=== PATIENT | male | born 1995 | race Caucasian/White ===

== ENCOUNTER 2016-10-29 19:58 | Emergency (ER) | payer MEDICAID ==
--- NOTE | 2016-10-29 20:14 | ED Physician Chart ---
Chief Complaint/HPI - Patient Information Date Seen:: 10/29/16 Time Seen:: 20:00 Chief Complaint:: hand pain History of Present Illness:: 21-year-old male, otherwise healthy, complains of acute, constant, mild to moderate, right hand pain over the dorsum that started 2 hours after his device biter. Has some associated slight swelling of the area. Denies numbness or tingling of distal extremity. Also denies Chest pain, palpitations, abdominal pain, nausea, vomiting, fevers. Allergies:: Allergies Allergy/AdvReac Type Severity Reaction Status Date / Time pcn Allergy Uncoded 12/27/12 11:52 Historian:: Patient Review:: Nurse's Note Reviewed Review of Systems - Review of Systems Other: Complete system review otherwise unremarkable except as noted in history of present illness. Past Medical History - Past Medical History Past Medical History: No significant medical hx Family History: None Social History: Non Smoker, No Alcohol, No Drug Use Surgical History: None Psychiatricy History: None Family Medical History - Family Member Mother History Unknown: Yes Physical Exam - Physical Examination Other:: INITIAL VITAL SIGNS: Reviewed by me GENERAL: Alert and interactive. No acute distress HEAD: Head is normocephalic and atraumatic EYES: EOMI. No scleral icterus. No conjunctival injection ENT: Moist mucous membranes. NECK: Supple. No masses. Full range of motion RESPIRATORY: No tachypnea. Clear breath sounds bilaterally. No wheezing, rales, or rhonchi CV: Regular rate and rhythm. No murmurs, rubs, or gallops ABDOMEN: Soft, non-distended, non-tender. No guarding. No rebound. No masses. EXTREMITIES: Right hand, dorsum there is a small area of edema with slight erythema over the second MCP area. Distal extremity has good neurovascular status. SKIN: Warm and dry. No obvious rashes. NEUROLOGIC: Alert and oriented. Face is symmetric. Speech is normal. Moves all extremities equally. Motor and sensory distally intact. ED Septic Shock - . Is Septic Shock (SBP<90, OR Lactate>4 mmol\L) present?: No Reassessment (Disposition) - Reassessment Reassessment:: Patient has acute right hand pain due to spider bite. At this point since of infection however the bite just happened about 2 hours prior to arrival. There is some moderate reaction to the bite. We gave Benadryl here in the ER. Symptoms improved. Provide a prescription for Keflex and Bactrim as prophylaxis to be started if signs of infection develop. Patient to take over- the-counter ibuprofen for pain control. Follow-up PCP 1 days for wound check. Return to ER precautions given. Patient understands and agrees with plan. Reassessment Condition:: Improved - Diagnosis Diagnosis:: Acute right hand pain due to acute spider bite of the right hand - Aftercare/Follow up Instructions Aftercare/Follow-Up Instructions:: Counseled pt regarding lab results/diagnosis & need follow up, Refer to Discharge Instructions Medication Prescribed:: Keflex Bactrim DS - Patient Disposition Discharge/Transfer:: Home Time:: 20:37 Condition at Disposition:: Improved ED Discharge Plan - Patient Disposition Admit/Discharge/Transfer: PT DISCHARGED HOME Condition at Disposition: Improved Instructions: Spider Bite, [id number]
== END 2016-10-29 20:45 | disposition home or self-care (01) ==
LOC: ER 19:58
DX: T63.301A Toxic effect of unspecified spider venom, accidental (unintentional), initial encounter (principal); Y92.89 Other specified places as the place of occurrence of the external cause; W57.XXXA Bitten or stung by nonvenomous insect and other nonvenomous arthropods, initial encounter; Y93.89 Activity, other specified; Y99.8 Other external cause status
CPT/HCPCS: Z7502